=== PATIENT | male | born 1945 | race Caucasian/White ===

== ENCOUNTER 2018-12-06 10:30 | Emergency (ER) | payer MEDICARE, OTHER ==
--- NOTE | 2018-12-06 10:45 | ER Document Report ---
ED Medical Screen (RME) - General Chief Complaint: Rib Pain Stated Complaint: RIB PAIN Time Seen by Provider: 12/06/18 10:43 Mode of Arrival: Ambulatory Information source: Patient - HPI Patient complains to provider of: rib pain Onset: Other - pt being treated fgor bronchitis felt a pain in L rib area after sneezing 2 days ago. Denies trauma - Related Data Allergies/Adverse Reactions: No Known Allergies Allergy (Unverified 12/06/18 10:42) Past Medical History - Social History Chew tobacco use (# tins/day): No Frequency of alcohol use: None Drug Abuse: None Pulmonary Medical History: Reports: Hx COPD Renal/ Medical History: Denies: Hx Peritoneal Dialysis Physical Exam - Vital signs Vitals: Temp Pulse Resp BP Pulse Ox 97.5 F 72 16 107/66 98 12/06/18 10:35 12/06/18 10:35 12/06/18 10:35 12/06/18 10:35 12/06/18 10:35 Course - Vital Signs Vital signs: Temp Pulse Resp BP Pulse Ox 97.5 F 72 16 107/66 98 12/06/18 10:35 12/06/18 10:35 12/06/18 10:35 12/06/18 10:35 12/06/18 10:35
--- NOTE | 2018-12-06 11:27 | RADIOLOGY REPORT (SQ) ---
EXAM DESCRIPTION: RIBS LEFT W/PA CHEST COMPLETED DATE/TIME: 12/06/2018 11:05 am REASON FOR STUDY: hx of cough sharp rib pain COMPARISON: None. TECHNIQUE: Frontal view of the chest and additional views of the left ribs acquired. NUMBER OF VIEWS: Five view. LIMITATIONS: None. FINDINGS: FRONTAL CXR: No pneumothorax. No pleural effusion. No atelectasis or infiltrates. RIBS: No displaced rib fractures. No lytic or blastic bony lesions. OTHER: No other significant finding. IMPRESSION: NO PNEUMOTHORAX. NO DISPLACED RIB FRACTURES. COMMENT: SITE OF TRAUMA/COMPLAINT MARKED/STAMP COMPLETED: YES. TECHNICAL DOCUMENTATION: JOB ID: [id number] [employer]- All Rights Reserved Reading location - IP/workstation name: [email or web address]
[2018-12-06] MEDS ORDERED: MORPHINE SULFATE 10 MG/ML INJ IV ONE (12:43)
[2018-12-06 13:37] LABS: ABSOLUTE EOSINOPHILS # (AUTO) 0.1 10^3/uL (0.0-0.6); ABSOLUTE LYMPHOCYTES (AUTO) 1.4 10^3/uL (0.5-4.7); ABSOLUTE MONOCYTES (AUTO) 1.9 10^3/uL (0.1-1.4); ABSOLUTE NEUT (AUTO) 15.7 10^3/uL (1.7-8.2); BASOPHILS % (AUTO) 0.1 % (0-2); EOSINOPHILS % (AUTO) 0.4 % (0-6); HEMATOCRIT 39.4 % (37.9-51.0); HEMOGLOBIN 13.2 g/dL (13.5-17.0); LYMPHOCYTES % (AUTO) 7.5 % (13-45); MEAN CORPUSCULAR HEMOGLOBIN 31.6 pg (27.0-33.4); MEAN CORPUSCULAR HGB CONC 33.5 g/dL (32.0-36.0); MEAN CORPUSCULAR VOLUME 94 fl (80-97); MONOCYTES % (AUTO) 9.7 % (3-13); PLATELET COUNT 434 10^3/uL (150-450); RED BLOOD COUNT 4.18 10^6/uL (4.35-5.55); RED CELL DISTRIBUTION WIDTH 13.7 % (11.5-14.0); SEGMENTED NEUTROPHILS % (AUTO) 82.3 % (42-78); TOTAL CELLS COUNTED % (AUTO) 100 %; WHITE BLOOD COUNT 19.1 10^3/uL (4.0-10.5)
[2018-12-06 13:47] LABS: INTERNATIONAL RATION (INR) 1.33; PROTHROMBIN TIME 17.1 SEC (11.4-15.4)
[2018-12-06 13:59] LABS: ALANINE AMINOTRANSFERASE 31 U/L (21-72); ALBUMIN 3.6 g/dL (3.5-5.0); ALKALINE PHOSPHATASE 82 U/L (38-126); ANION GAP 8 (5-19); ASPARTATE AMINO TRANSFERASE 28 U/L (17-59); BILIRUBIN,DIRECT 0.3 mg/dL (0.0-0.4); BILIRUBIN,TOTAL 1.4 mg/dL (0.2-1.3); BLOOD UREA NITROGEN 19 mg/dL (7-20); CALCIUM 8.7 mg/dL (8.4-10.2); CARBON DIOXIDE 27 mmol/L (22-30); CHLORIDE 97 mmol/L (98-107); GLUCOSE 112 mg/dL (75-110); POTASSIUM 4.1 mmol/L (3.6-5.0); SODIUM 131.9 mmol/L (137-145); TOTAL PROTEIN 6.3 g/dL (6.3-8.2)
--- NOTE | 2018-12-06 14:34 | RADIOLOGY REPORT (SQ) ---
EXAM DESCRIPTION: CT CHEST WITH COMPLETED DATE/TIME: 12/06/2018 2:19 pm REASON FOR STUDY: left anterior/lateral rib pain, brusing/swelling COMPARISON: None. TECHNIQUE: CT scan of the chest performed using helical scanning technique with dynamic intravenous contrast injection. Images reviewed with lung, soft tissue and bone windows. Reconstructed coronal and sagittal MPR and MIP images reviewed. All images stored on PACS. All CT scanners at this facility use dose modulation, iterative reconstruction, and/or weight based d osing when appropriate to reduce radiation dose to as low as reasonably achievable (ALARA). [facility]: Dose Right [facility]: CareDose [facility]: Dose Right [facility]: Teradose 4D [facility]: Double R Group CONTRAST TYPE AND DOSE: 100 mL Omnipaque 350- low osmolar. RENAL FUNCTION: BUN 19 creatinine 0.81. RADIATION DOSE: . LIMITATIONS: None. FINDINGS: LUNGS AND PLEURA: Scattered parenchymal scarring. Bronchiectasis with bronchial wall thic kening. No focal infiltrates. No pleural effusion or pneumothorax. HILAR AND MEDIASTINAL STRUCTURES: No identified masses or abnormal nodes. HEART AND VASCULAR STRUCTURES: No aneurysm or dissection. No central pulmonary emboli. No pericardi al effusion. HARDWARE: None in the chest. UPPER ABDOMEN: See separate report of the CT of the abdomen. THYROID AND OTHER SOFT TISSUES: No masses. No adenopathy. BONES: No significant finding. OTHER: No other significant finding. IMPRESSION: CHRONIC PULMONARY CHANGES. NO ACUTE FINDINGS. TECHNICAL DOCUMENTATION: JOB ID: [id number] Quality ID # [id number]: Final reports with documentation of one or more dose reduction techniques (e.g., Au tomated exposure control, adjustment of the mA and/or kV according to patient size, use of iterative reconstruction technique) 2010 [employer]- All Rights Reserved Reading location - IP/workstation name: [email or web address]
--- NOTE | 2018-12-06 14:39 | RADIOLOGY REPORT (SQ) ---
EXAM DESCRIPTION: CT ABDOMEN IV CONTRAST ONLY COMPLETED DATE/TIME: 12/06/2018 2:19 pm REASON FOR STUDY: left anterior/lateral rib pain, brusing/swelling COMPARISON: None. TECHNIQUE: CT scan of the abdomen performed with intravenous and without oral contrast using helical scanning technique with dynamic intravenous contrast injection. Images reviewed with lung, soft tiss ue, and bone windows. Reconstructed coronal and sagittal MPR images reviewed. Delayed images for eval uation of the urinary system also acquired and evaluated. All images stored on PACS. All CT scanners at this facility use dose modulation, iterative reconstruc tion, and/or weight based dosing when appropriate to reduce radiation dose to as low as reasonably ac hievable (ALARA). [facility]: Dose Right [facility]: CareDose [facility]: Dose Right [facility]: Teradose 4D [facility]: [employer] CONTRAST TYPE AND DOSE: contrast/concentration: Isovue 350.00 mg/ml; Total Contrast Delivered: 100.0 ml; Total Saline Delivered: 72.0 ml RENAL FUNCTION: BUN 19 creatinine 0.81. RADIATION DOSE: CT Rad equipment meets quality standard of care and radiation dose reduction techniq ues were employed. CTDIvol: 15.2 - 18.8 mGy. DLP: 1682 mGy-cm. . LIMITATIONS: None. FINDINGS: LOWER CHEST: See separate report of the CT of the chest. LIVER: Normal size. No masses. No dilated ducts. SPLEEN: Normal size. No focal lesions. PANCREAS: No masses. No significant calcifications. No adjacent inflammation or peripancreatic fluid collections. Pancreatic duct not dilated. GALLBLADDER: No identified stones by CT criteria. No inflammatory changes to suggest cholecystitis. ADRENAL GLANDS: No significant masses or asymmetry. RIGHT KIDNEY AND URETER: No solid masses. No significant calcifications. No hydronephrosis or hyd roureter. LEFT KIDNEY AND URETER: No solid masses. No significant calcifications. No hydronephrosis or hydr oureter. AORTA AND VESSELS: No aneurysm. No dissection. Renal arteries, SMA, celiac without stenosis. RETROPERITONEUM: No retroperitoneal adenopathy, hemorrhage or masses. BOWEL AND PERITONEAL CAVITY: No masses or inflammatory changes. No free fluid or peritoneal masses. APPENDIX: Not visualized. ABDOMINAL WALL: Large heterogenous hematoma in the left rectus muscle and extending into the lateral musculature of the left anterior abdomen and lower chest. Total extent of involvement in craniocauda l dimension is at least 17 cm and maximum thickness is 7 cm. BONES: No significant or acute findings. OTHER: No other significant finding. IMPRESSION: 1. LARGE HETEROGENOUS HEMATOMA IN THE MUSCULATURE OF THE LEFT RECTUS MUSCLE AND LATERAL MUSCULATURE O F THE LEFT ANTERIOR ABDOMEN AND LOWER CHEST. 2. NO OTHER SIGNIFICANT FINDINGS. TECHNICAL DOCUMENTATION: JOB ID: [id number] Quality ID # [id number]: Final reports with documentation of one or more dose reduction techniques (e.g., Au tomated exposure control, adjustment of the mA and/or kV according to patient size, use of iterative reconstruction technique) 2010 [employer]- All Rights Reserved Reading location - IP/workstation name: [email or web address]
--- NOTE | 2018-12-06 16:11 | ER Document Report ---
ED General - General Chief Complaint: Rib Pain Stated Complaint: RIB PAIN Time Seen by Provider: 12/06/18 10:43 Mode of Arrival: Ambulatory Notes: Patient is a 73-year-old male who presents to the emergency permit with a chief complaint of left-sided chest wall pain. He has been coughing for the past 9 days and 2 days ago he felt a popping sensation in the left side of his chest when he had coughed. He is on Eliquis and he noticed bruising to his left abdomen right below his ribs. He states the pain is 2 out of 5 after receiving morphine from the previous provider. He denies needing any extra pain medicine at this time. He is currently on Eliquis. Has a past medical history of atrial fibrillation with ablation in 2017. He also has history of rheumatoid arthritis and is on Humira and methotrexate. Denies shortness of breath, difficulty breathing, nausea, diarrhea, or vomiting. - Related Data Allergies/Adverse Reactions: No Known Allergies Allergy (Unverified 12/06/18 10:42) Past Medical History - General Information source: Patient - Social History Smoking Status: Former Smoker Chew tobacco use (# tins/day): No Frequency of alcohol use: None Drug Abuse: None Family History: Reviewed & Not Pertinent Patient has suicidal ideation: No Patient has homicidal ideation: No Pulmonary Medical History: Reports: Hx COPD Renal/ Medical History: Denies: Hx Peritoneal Dialysis Review of Systems - Review of Systems Notes: REVIEW OF SYSTEMS: CONSTITUTIONAL : Denies recent illness. Denies recent unintentional weight loss. Denies fever, chills, or sweats. EENT: Denies eye, ear, throat, or mouth pain, discharge, or symptoms. Denies nasal or sinus congestion. CARDIOVASCULAR: Denies chest pain. RESPIRATORY: See HPI GASTROINTESTINAL: See HPI GENITOURINARY: Denies difficulty urinating, burning, blood in urine, urgency or frequency. MUSCULOSKELETAL: Denies neck and back pain. Denies joint pain or swelling. SKIN: Denies rash, itchiness, or lesions HEMATOLOGIC : Denies easy bruising or bleeding. LYMPHATIC: Denies swollen, painful, enlarged glands. NEUROLOGICAL: Denies no numbness or tingling denies weakness. Denies headache. Denies altered mental status. Denies alteration in speech. PSYCHIATRIC: Denies stress, anxiety, alteration in sleep patterns, or de pression. All other systems reviewed and negative. Physical Exam - Vital signs Vitals: Temp Pulse Resp BP Pulse Ox 97.5 F 72 16 107/66 98 12/06/18 10:35 12/06/18 10:35 12/06/18 10:35 12/06/18 10:35 12/06/18 10:35 - Notes Notes: PHYSICAL EXAMINATION: GENERAL: Appears well, healthy, well-nourished, no acute distress. HEAD: Normocephalic, atraumatic. EYES: PERRL, conjunctiva normal, all extraocular movements intact, sclera nonicteric ENT: Moist mucous membranes. NECK: Supple, no noticeable swelling, redness, rash. Normal range of motion. LUNGS: Equal breath sounds bilaterally and clear to auscultation. No wheezes rales or rhonchi. CARDIOVASCULAR: S1-S2, regular rate, regular rhythm. Radial pulses 2+, normal. Left lower chest wall tenderness. ABDOMEN: Normoactive bowel sounds. Soft, mildly tender left abdomen with bruising, no guarding, no rebound tenderness, and no masses palpated. EXTREMITIES: Normal strength and range of motion, no pitting or edema. No cyanosis. NEUROLOGICAL: Moves all extremities upon command. Strength 5/5 in all extremities. PSYCH: Normal mood, normal affect. SKIN: Warm, dry. No rash, lesions, ulcerations noted. Normal skin turgor. Course - Re-evaluation Re-evalutation: 12/06/18 I have taken over care of this patient. See previous providers notes. Patient's labs are unremarkable and he is not mostly anemic. His CT of his ch est and abdomen shows a hematoma to his left chest wall. I have discussed this case with Dr. Lucero, and she suggests the patient follow-up outpatient to have his labs checked. I spoke with the patient and he is from [facility] and does not have a primary care provider here. I have discussed with the patient that I am working this Friday and I have instructed him to follow-up in the outpatient lab and I will reassess him on that day. Verbal discharge instructions were given to the patient. They verbalized understanding. They are stable for discharge. - Vital Signs Vital signs: Temp Pulse Resp BP Pulse Ox 97.5 F 64 19 136/73 H 98 12/06/18 10:35 12/06/18 17:08 12/06/18 17:08 12/06/18 17:08 12/06/18 17:08 - Laboratory Result Diagrams: 12/06/18 13:24 12/06/18 13:24 Laboratory results interpreted by me: 12/06/18 12/06/18 12/06/18 13:24 13:24 13:24 WBC 19.1 H RBC 4.18 L Hgb 13.2 L Seg Neutrophils % 82.3 H Lymphocytes % 7.5 L Absolute Neutrophils 15.7 H Absolute Monocytes 1.9 H PT 17.1 H Sodium 131.9 L Chloride 97 L Glucose 112 H Total Bilirubin 1.4 H Discharge - Discharge Clinical Impression: Chest wall hematoma Qualifiers: Encounter type: initial encounter Laterality: left Qualified Code(s): S20.212A - Contusion of left front wall of thorax, initial encounter Condition: Stable Disposition: HOME, SELF-CARE Additional Instructions: You were seen today in the emergency department for a chest wall pain. You have a hematoma, a large bruise, to your chest wall. Please stop your Eliquis for the next few days. Please follow-up here in the emergency department on Friday for an outpatient lab check. You may take Tylenol for the pain. You have been ordered morphine, you may take 1 tablet every 12 hours as needed for your pain. Please take some stool softeners while you are on morphine see you do not become constipated. If you feel like you are not getting any better, have difficulty breathing, shortness of breath, or have any symptoms that are worrisome to you, please return to the emergency department. Please have your labs drawn in the outpatient clinic here at the hospital on Friday at 1 PM. I will be working at 2 PM. I can evaluate your labs at that time. Prescriptions: Morphine Sulfate [Morphine Ir 15 Mg Tablet] 15 mg PO BID #10 tablet Forms: Follow-Up Laboratory Testing
[2018-12-06 16:54] VITALS: BP 136/73
== END 2018-12-06 17:11 | disposition home or self-care (01) ==
LOC: ER 10:30
DX: S20.212A Contusion of left front wall of thorax, initial encounter (principal); S30.1XXA Contusion of abdominal wall, initial encounter; X58.XXXA Exposure to other specified factors, initial encounter; I48.91 Unspecified atrial fibrillation; Z79.01 Long term (current) use of anticoagulants; M06.9 Rheumatoid arthritis, unspecified; Z79.899 Other long term (current) drug therapy; Z87.891 Personal history of nicotine dependence
CPT/HCPCS: 99284; 96374; 36415; 85025; 85610; 80053; 71101; 71260; 74160; J2270

== ENCOUNTER 2018-12-09 14:52 | Emergency (ER) | payer MEDICARE ==
--- NOTE | 2018-12-09 16:27 | ER Document Report ---
Addendum entered and electronically signed by STEVE SINGH PA-C 12/11/18 09:39: Course - Vital Signs Vital signs: Temp Pulse Resp BP Pulse Ox 97.8 F 67 30 H 125/69 94 12/09/18 21:47 12/09/18 15:15 12/09/18 21:47 12/09/18 21:47 12/09/18 21:47 - Laboratory Result Diagrams: 12/09/18 20:25 12/09/18 16:20 Laboratory results interpreted by me: 12/09/18 12/09/18 12/09/18 16:20 16:20 16:20 WBC 18.2 H RBC 3.24 L Hgb 10.5 L Hct 30.8 L RDW 14.1 H Plt Count 457 H Seg Neutrophils % 80.6 H Lymphocytes % 8.1 L Absolute Neutrophils 14.7 H Absolute Monocytes 2.0 H Sodium 130.1 L Chloride 95 L Creatine Kinase 295 H Urine Protein 30 H Urine Ketones TRACE H Urine Urobilinogen 4.0 H Urine Ascorbic Acid 40 H 12/09/18 20:25 WBC 16.1 H RBC 2.92 L Hgb 9.5 L Hct 27.6 L RDW Plt Count Seg Neutrophils % 82.7 H Lymphocytes % 7.2 L Absolute Neutrophils 13.3 H Absolute Monocytes 1.6 H Sodium Chloride Creatine Kinase Urine Protein Urine Ketones Urine Urobilinogen Urine Ascorbic Acid Original Note: ED General - General TRAVEL OUTSIDE OF THE [place] IN LAST 30 DAYS: No <STEVE SINGH - Last Filed: 12/09/18 18:54> <FELICIANO JOE - Last Filed: 12/09/18 21:54> - General Chief Complaint: Abnormal Lab Results Stated Complaint: SIDE PAIN Time Seen by Provider: 12/09/18 16:13 Primary Care Provider: PALOMA FOSTER MD [MARTIN PHAN] - 12/11/18 - HPI Notes: Patient is a 73-year-old male with a history of hypertension, COPD, A. fib (on Eliquis) who presents the emergency department due to abnormal labs upon recheck today. Patient was evaluated 3 days ago for left abdominal/chest pain and was found to have a large heterogenous hematoma in the musculature of the left rectus muscle and lateral musculature of the left anterior abdomen and lower chest. Patient states that he had been coughing for about a week and a half prior and felt a "pop" during 1 of his episodes. Patient states that he did stop taking his Eliquis on Friday, but did take the morning dose prior to arrival to the emergency department initially. His repeat hemoglobin has significantly dropped over the course of 3 days and patient states that he has noticed increased bruising throughout his stomach. Patient states that when he stands up he does feel lightheaded and dizzy. He has had a decreased appetite. He is otherwise urinating normally and having normal bowel movements. He denies any drug allergies. No other concerns or complaints. He did have an ablation performed last year and believes that he has been in rhythm since then. Denies any headache, fever, neck pain, changes in vision/speech/mentation/hearing, URI, sore throat, chest pain, palpitations, syncope, cough, shortness of breath, wheeze, dyspnea, nausea/vomiting/diarrhea, urinary retention, dysuria, hematuria, loss of control of bowel or bladder, numbness/tingling, saddle anesthesia, muscle paralysis/weakness, or rash. (STEVE SINGH) - Related Data Allergies/Adverse Reactions: No Known Allergies Allergy (Verified 12/09/18 14:54) Past Medical History - Social History Smoking Status: Former Smoker Family History: Reviewed & Not Pertinent Pulmonary Medical History: Reports: Hx COPD Renal/ Medical History: Denies: Hx Peritoneal Dialysis <STEVE SINGH - Last Filed: 12/09/18 18:54> Review of Systems - Review of Systems -: Yes All other systems reviewed and negative <STEVE SINGH - Last Filed: 12/09/18 18:54> Physical Exam <STEVE SINGH - Last Filed: 12/09/18 18:54> - Vital signs Vitals: Temp Pulse Resp BP Pulse Ox 98.1 F 67 20 116/64 95 12/09/18 15:15 12/09/18 15:15 12/09/18 15:15 12/09/18 15:15 12/09/18 15:15 - Notes Notes: PHYSICAL EXAMINATION: GENERAL: Well-appearing, well-nourished and in no acute distress. A&Ox4. Answers questions appropriately. HEAD: Atraumatic, normocephalic. Non-tender. EYES: Pupils equal round and reactive to light, extraocular movements intact, sclera anicteric, conjunctiva are normal. No nystagmus. vis rose intact. ENT: Nares patent and without discharge. oropharynx clear without exudates. No tonsilar hypertrophy or erythema. Moist mucous membranes. NECK: Normal range of motion, supple without lymphadenopathy. No rigidity/meningismus. No midline tenderness. LUNGS: Breath sounds clear to auscultation bilaterally and equal. No wheezes rales or rhonchi. HEART: Regular rate and rhythm without murmurs, rubs, gallops. ABDOMEN: + significant ecchymosis encompassing almost the entire abdomen. + firmness to the left abdominal wall and mild tenderness. Musculoskeletal: Ext's b/l: FROM to passive/active. Strength 5+/5. No deficits noted. No bony tenderness of extremities. Extremities: No cyanosis, clubbing, or edema b/l. Peripheral pulses 2+. Capillary refill less than 2 seconds. NEUROLOGICAL: Cranial nerves grossly intact. Normal speech, normal gait. Normal sensory, motor exams. PSYCH: Normal mood, normal affect. SKIN: Warm, Dry, normal turgor, no rashes or lesions noted. (STEVE SINGH) Course - Laboratory Result Diagrams: 12/09/18 16:20 12/09/18 16:20 <STEVE SINGH - Last Filed: 12/09/18 18:54> - Laboratory Result Diagrams: 12/09/18 20:25 12/09/18 16:20 <FELICIANO JOE - Last Filed: 12/09/18 21:54> - Re-evaluation Re-evalutation: 12/09/18 16:[address] Galeana after eval of patient: Patient is in no acute distress. He has no significant tachycardia, tachypnea, hypotension, or hypoxia. Heart rate currently 64, pulse ox 97% on room air, blood pressure 180/78. Patient is nontoxic-appearing. We will obtain labs including a type and screen. We will hold off on blood transfusion at this time as he is not significantly tachycardia or hypotensive. Patient has been placed on a monitor and will be observed closely. Call placed to the general surgeon who is in a procedure currently, but will call me back shortly. 12/09/18 17:[address] Foster for evaluation on the patient. Pt's H:H improved from 9.6/27.9 to 10.5/30.8. The first draw was around 1300 today and the 2nd around 1630. Surgeon states that he believes that the bleeding has ceased and is currently hemodynamically stable. He recommends that we repeat the hemoglobin and hematocrit in another 4 hours from previously drawn to further evaluate while maintaining him on the monitor. If he remains stable then we may discharge with follow-up to their office, but if any other changes to call him back for consult. He would also like to be Eliquis to be held. Patient and are in agreement with this plan. Low suspicion for any sepsis, meningitis, acute abdomen, anemia requiring transfusion, or other systemic emergent condition at this time. Patient is aware that condition can change from initial presentation and he needs to monitor symptoms closely and seek medical attention with any acute changes. Patient to be discharged pending stability of his next H&H. If his H&H is unstable and the patient will most likely be admitted at that time with a general surgeon consult prior. Dr. Galeana is in agreement with plan. 12/09/18 19:00 Transfer of care to Feliciano RODRIGUEZ (STEVE SINGH) 12/09/18 21:45 Hemoglobin repeat at 9.5. I did call and speak with Dr. Foster, surgeon wallpaper consultant. Recommendation is to have a 2-day follow-up for recheck of hemoglobin and close follow-up in the surgical office after that (within the week). Patient did perform orthostatic vital signs without dizziness or symptoms. Requesting to go home, discussed return precautions in detail, discussed results, discussed recommendations. Patient states understanding and agreement. (FELICIANO JOE) - Vital Signs Vital signs: Temp Pulse Resp BP Pulse Ox 98.9 F 67 26 H 163/68 H 91 L 12/09/18 18:14 12/09/18 15:15 12/09/18 21:01 12/09/18 21:01 12/09/18 21:01 - Laboratory Laboratory results interpreted by me: 12/09/18 12/09/18 12/09/18 16:20 16:20 16:20 WBC 18.2 H RBC 3.24 L Hgb 10.5 L Hct 30.8 L RDW 14.1 H Plt Count 457 H Seg Neutrophils % 80.6 H Lymphocytes % 8.1 L Absolute Neutrophils 14.7 H Absolute Monocytes 2.0 H Sodium 130.1 L Chloride 95 L Creatine Kinase 295 H Urine Protein 30 H Urine Ketones TRACE H Urine Urobilinogen 4.0 H Urine Ascorbic Acid 40 H 12/09/18 20:25 WBC 16.1 H RBC 2.92 L Hgb 9.5 L Hct 27.6 L RDW Plt Count Seg Neutrophils % 82.7 H Lymphocytes % 7.2 L Absolute Neutrophils 13.3 H Absolute Monocytes 1.6 H Sodium Chloride Creatine Kinase Urine Protein Urine Ketones Urine Urobilinogen Urine Ascorbic Acid Discharge <FRANCISCOSTEVE - Last Filed: 12/09/18 18:54> <FELICIANO JOE - Last Filed: 12/09/18 21:54> - Discharge Clinical Impression: Abdominal wall hematoma Qualifiers: Encounter type: subsequent encounter Qualified Code(s): S30.1XXD - Contusion of abdominal wall, subsequent encounter Condition: Stable Additional Instructions: Stop taking your Eliquis until further directed Tylenol as needed for discomfort Continue home breathing treatments as needed [id number] cold medicine as needed Monitor your blood pressure and your heart rate frequently throughout the day Recheck with the general surgeon's office in 2 days. He has been given An outpatient lab order for another CBC to be drawn to check your blood counts that you may have drawn prior to your office visit follow-up visit Return to the ED with any worsening symptoms and/or development of fever, headache, dizziness, changes in behavior/mentation/vision/speech, chest pain, palpitations, syncope, shortness of breath, trouble breathing, abdominal pain, n/v/d, blood in stool/urine, loss of control of bowel/bladder, urinary retention, muscle weakness/paralysis, numbness/tingling, or other worsening symptoms that are concerning to you. Prescriptions: Codeine Phosphate/Guaifenesin [Cheratussin Ac Syrup] 10 ml PO QID #200 ml Forms: Follow-Up Laboratory Testing Referrals: PALOMA FOSTER MD [MARTIN PHAN] - 12/11/18
[2018-12-09 16:48] LABS: ABSOLUTE EOSINOPHILS # (AUTO) 0.1 10^3/uL (0.0-0.6); ABSOLUTE LYMPHOCYTES (AUTO) 1.5 10^3/uL (0.5-4.7); ABSOLUTE NEUT (AUTO) 14.7 10^3/uL (1.7-8.2); BASOPHILS % (AUTO) 0.2 % (0-2); EOSINOPHILS % (AUTO) 0.4 % (0-6); HEMATOCRIT 30.8 % (37.9-51.0); HEMOGLOBIN 10.5 g/dL (13.5-17.0); LYMPHOCYTES % (AUTO) 8.1 % (13-45); MEAN CORPUSCULAR HEMOGLOBIN 32.4 pg (27.0-33.4); MEAN CORPUSCULAR HGB CONC 34.1 g/dL (32.0-36.0); MEAN CORPUSCULAR VOLUME 95 fl (80-97); MONOCYTES % (AUTO) 10.7 % (3-13); PLATELET COUNT 457 10^3/uL (150-450); RED BLOOD COUNT 3.24 10^6/uL (4.35-5.55); RED CELL DISTRIBUTION WIDTH 14.1 % (11.5-14.0); SEGMENTED NEUTROPHILS % (AUTO) 80.6 % (42-78); TOTAL CELLS COUNTED % (AUTO) 100 %; WHITE BLOOD COUNT 18.2 10^3/uL (4.0-10.5)
[2018-12-09 17:10] LABS: ALANINE AMINOTRANSFERASE 24 U/L (21-72); ALBUMIN 3.6 g/dL (3.5-5.0); ALKALINE PHOSPHATASE 74 U/L (38-126); ANION GAP 7 (5-19); ASPARTATE AMINO TRANSFERASE 43 U/L (17-59); BILIRUBIN,DIRECT 0.2 mg/dL (0.0-0.4); BLOOD UREA NITROGEN 13 mg/dL (7-20); CALCIUM 8.5 mg/dL (8.4-10.2); CARBON DIOXIDE 28 mmol/L (22-30); CHLORIDE 95 mmol/L (98-107); CREATINE KINASE 295 U/L (55-170); GLUCOSE 106 mg/dL (75-110); POTASSIUM 4.5 mmol/L (3.6-5.0); SODIUM 130.1 mmol/L (137-145); TOTAL PROTEIN 6.3 g/dL (6.3-8.2)
[2018-12-09] MEDS ORDERED: BENZONATATE 100 MG CAPSULE PO ONE (17:22)
[2018-12-09 17:28] LABS: APPEARANCE,URINE SLIGHTLY-CLOUDY; BILIRUBIN,URINE NEGATIVE (NEGATIVE); CALCIUM OXALATE CRYSTALS,URINE FEW /HPF; COLOR,URINE AMBER; GLUCOSE, URINE NEGATIVE (NEGATIVE); KETONES,URINE TRACE mg/dL (NEGATIVE); LEUKOCYTE ESTERASE,URINE NEGATIVE (NEGATIVE); NITRITE,URINE NEGATIVE (NEGATIVE); PROTEIN,URINE 30 mg/dL (NEGATIVE); URINE SPECIFIC GRAVITY 1.029
--- NOTE | 2018-12-09 17:53 | PDOC CONSULTATION ---
Consultation Consult Date: 12/09/18 Consult reason:: abdominal wall hematoma with pains on coughing History of Present Illness Admission Date/PCP: KEITH LEBRON Patient complains of: Pains left UQ abdominal wall on coughing History of Present Illness: JACKIE LUTZ is a 73 year old male who was on Eliquis for history of A Fib , had a big coughing spell followed by abdominal wall pains 12/06/18. Seen at Ed then and noted a large heterogeneous hematoma Left UQ abdominal wall. His Hemoglobin then was 13 with normal VS and was discharge and told to stop Eliquis. Came back to ED today because of pains abdominal wall on coughing. Has history of COPD and worked in the [employer]. His VS were normal and main concern was the pain on coughing. His HB initially was 9.6 and repeat 3 hrs later was 10.5. Past Medical History Cardiac Medical History: Reports: Atrial Fibrillation Pulmonary Medical History: Reports: Chronic Obstructive Pulmonary Disease (COPD) Past Surgical History Past Surgical History: Reports: Appendectomy, Orthopedic Surgery - right knee, Other - Successful ablation of A Fib about a year ago Social History Smoking Status: Former Smoker Family History Family History: Reviewed & Not Pertinent Parental Family History Reviewed: Yes Children Family History Reviewed: No Sibling(s) Family History Reviewed.: No Medication/Allergy Home Medications: Morphine Sulfate [Morphine Ir 15 Mg Tablet] 15 mg PO BID #10 tablet 12/06/18 Codeine Phosphate/Guaifenesin [Cheratussin Ac Syrup] 10 ml PO QID #200 ml 12/09/18 Allergies/Adverse Reactions: No Known Allergies Allergy (Verified 12/09/18 14:54) Review of Systems Constitutional: PRESENT: other - no fever or chills Eyes: PRESENT: other - no visual/hearing changes Cardiovascular: PRESENT: other - no chest pains Respiratory: PRESENT: cough Gastrointestinal: PRESENT: abdominal pain - abd wall pains on coughing Integumentary: PRESENT: other - dark discoloration of abdominal wall Physical Exam Vital Signs: Temp Pulse Resp BP Pulse Ox 98.1 F 67 18 180/78 H 96 12/09/18 15:15 12/09/18 15:15 12/09/18 16:14 12/09/18 16:13 12/09/18 16:14 Intake & Output 12/08/18 12/09/1812/10/19 06:59 06:59 06:59 Weight 99.2 kg General appearance: PRESENT: no acute distress Head exam: PRESENT: atraumatic Eye exam: PRESENT: conjunctiva pink Mouth exam: PRESENT: moist Neck exam: PRESENT: full ROM Respiratory exam: PRESENT: clear to auscultation damir Cardiovascular exam: PRESENT: RRR Pulses: PRESENT: normal radial pulses Vascular exam: PRESENT: normal capillary refill GI/Abdominal exam: PRESENT: normal bowel sounds, tenderness - LUQ abdominal wall Ecchymosis of most of abdominal wall but soft and nontebder except the LUQ area Rectal exam: PRESENT: deferred Musculoskeletal exam: PRESENT: ambulatory Neurological exam: PRESENT: alert, oriented to person, oriented to place, oriented to time, oriented to situation Psychiatric exam: PRESENT: appropriate affect Skin exam: PRESENT: warm, other - ecchymotic abdominal wall but soft and non tender Results Laboratory Results: 12/09/18 16:20 12/09/18 16:20 12/09/18 12/09/18 12/09/18 16:20 16:20 16:20 WBC 18.2 H RBC 3.24 L Hgb 10.5 L Hct 30.8 L MCV 95 MCH 32.4 MCHC 34.1 RDW 14.1 H Plt Count 457 H Seg Neutrophils % 80.6 H Lymphocytes % 8.1 L Monocytes % 10.7 Eosinophils % 0.4 Basophils % 0.2 Absolute Neutrophils 14.7 H Absolute Lymphocytes 1.5 Absolute Monocytes 2.0 H Absolute Eosinophils 0.1 Absolute Basophils 0.0 Sodium 130.1 L Potassium 4.5 Chloride 95 L Carbon Dioxide 28 Anion Gap 7 BUN 13 Creatinine 0.58 Est GFR ( Amer) > 60 Est GFR (Non-Af Amer) > 60 Glucose 106 Calcium 8.5 Total Bilirubin 1.0 AST 43 ALT 24 Alkaline Phosphatase 74 Total Protein 6.3 Albumin 3.6 Urine Color RAGINI Urine Appearance SLIGHTLY-CLOUDY Urine pH 5.0 Ur Specific [place] 1.029 Urine Protein 30 H Urine Glucose (UA) NEGATIVE Urine Ketones TRACE H Urine Blood NEGATIVE Urine Nitrite NEGATIVE Ur Leukocyte Esterase NEGATIVE Urine WBC (Auto) 1 12/09/18 16:20 Creatine Kinase 295 H Assessment & Plan - Diagnosis (1) Abdominal wall hematoma Qualifiers: Encounter type: subsequent encounter Qualified Code(s): S30.1XXD - Contusion of abdominal wall, subsequent encounter Is this a current diagnosis for this admission?: Yes (2) Chest wall hematoma Qualifiers: Encounter type: subsequent encounter Laterality: left Qualified Code(s): S20.212D - Contusion of left front wall of thorax, subsequent encounter Is this a current diagnosis for this admission?: Yes - Time Time Spent: 30 to 50 Minutes - Plan Summary Plan Summary: He is not bleeding as evidenced by normal VS and incresed HB OK to repear HB after another 3 hrs then if stable maybe discharge on an anti cough medication. We can follow up in the clinic with a repeat H/H in3-5 days.
[2018-12-09] MEDS ORDERED: NORMAL SALINE 1000 ML 1,000 ML IV PRN (19:09)
[2018-12-09 20:30] LABS: ABSOLUTE LYMPHOCYTES (AUTO) 1.2 10^3/uL (0.5-4.7); ABSOLUTE MONOCYTES (AUTO) 1.6 10^3/uL (0.1-1.4); ABSOLUTE NEUT (AUTO) 13.3 10^3/uL (1.7-8.2); BASOPHILS % (AUTO) 0.2 % (0-2); EOSINOPHILS % (AUTO) 0.2 % (0-6); HEMATOCRIT 27.6 % (37.9-51.0); HEMOGLOBIN 9.5 g/dL (13.5-17.0); LYMPHOCYTES % (AUTO) 7.2 % (13-45); MEAN CORPUSCULAR HEMOGLOBIN 32.4 pg (27.0-33.4); MEAN CORPUSCULAR HGB CONC 34.3 g/dL (32.0-36.0); MEAN CORPUSCULAR VOLUME 95 fl (80-97); MONOCYTES % (AUTO) 9.7 % (3-13); PLATELET COUNT 362 10^3/uL (150-450); RED BLOOD COUNT 2.92 10^6/uL (4.35-5.55); RED CELL DISTRIBUTION WIDTH 13.9 % (11.5-14.0); SEGMENTED NEUTROPHILS % (AUTO) 82.7 % (42-78); TOTAL CELLS COUNTED % (AUTO) 100 %; WHITE BLOOD COUNT 16.1 10^3/uL (4.0-10.5)
[2018-12-09 22:03] VITALS: BP 125/69
== END 2018-12-09 22:03 | disposition home or self-care (01) ==
LOC: ER 14:52
DX: S30.1XXA Contusion of abdominal wall, initial encounter (principal); X58.XXXA Exposure to other specified factors, initial encounter; I48.91 Unspecified atrial fibrillation; Z79.01 Long term (current) use of anticoagulants; I10 Essential (primary) hypertension; J44.9 Chronic obstructive pulmonary disease, unspecified; R05 Cough; R42 Dizziness and giddiness; R63.0 Anorexia; Z87.891 Personal history of nicotine dependence
CPT/HCPCS: 99284; 86900; 86901; 36415; 86850; 82550; 85025; 80053; 81001; A9270; J7030; 85027; 96360

== ENCOUNTER → 2018-12-09 | Outpatient (CLI) | payer MEDICARE ==
[2018-12-09 13:28] LABS: HEMATOCRIT 27.9 % (37.9-51.0); MEAN CORPUSCULAR HEMOGLOBIN 32.5 pg (27.0-33.4); MEAN CORPUSCULAR HGB CONC 34.4 g/dL (32.0-36.0); MEAN CORPUSCULAR VOLUME 94 fl (80-97); PLATELET COUNT 409 10^3/uL (150-450); RED BLOOD COUNT 2.96 10^6/uL (4.35-5.55); RED CELL DISTRIBUTION WIDTH 13.9 % (11.5-14.0); WHITE BLOOD COUNT 15.8 10^3/uL (4.0-10.5)
[2018-12-09 13:41] LABS: HEMOGLOBIN 9.6 g/dL (13.5-17.0)
== END ==
LOC: LAB 13:05
PROVIDERS: ATTEND Nurse Practitioner
DX: S20.212A Contusion of left front wall of thorax, initial encounter (principal); R07.81 Pleurodynia; X58.XXXA Exposure to other specified factors, initial encounter
CPT/HCPCS: 36415; 85027

== ENCOUNTER → 2018-12-11 | Outpatient (CLI) | payer MEDICARE ==
[2018-12-11 12:35] LABS: HEMOGLOBIN 10.2 g/dL (13.5-17.0); MEAN CORPUSCULAR HEMOGLOBIN 32.2 pg (27.0-33.4); MEAN CORPUSCULAR VOLUME 95 fl (80-97); PLATELET COUNT 530 10^3/uL (150-450); RED BLOOD COUNT 3.16 10^6/uL (4.35-5.55); RED CELL DISTRIBUTION WIDTH 14.7 % (11.5-14.0)
== END ==
LOC: LAB 11:49
PROVIDERS: ATTEND Physician Assistant Medical
DX: K43.9 Ventral hernia without obstruction or gangrene (principal); D64.9 Anemia, unspecified; R10.9 Unspecified abdominal pain; R19.00 Intra-abdominal and pelvic swelling, mass and lump, unspecified site
CPT/HCPCS: 36415; 85027